=== PATIENT | male | born 1975 | race Caucasian/White ===

== ENCOUNTER 2018-08-21 12:33 | Outpatient (CLI) | payer OTHER ==
[2018-08-21] MEDS ORDERED: IOTHALAMATE MEGLUMINE 50 ML VIAL ONE (12:45)
[2018-08-21] MEDS ORDERED: GADOPENTETATE DIMEGLUMINE 5 ML VIAL IVP ONE ×2 (12:45→13:39)
[2018-08-21] MEDS ORDERED: IOTHALAMATE MEGLUMINE 50 ML VIAL IVP ONE (13:39)
[2018-08-21] MEDS ORDERED: BUFFERED LIDOCAINE 10 ML SYRINGE IU ONE (13:39)
--- NOTE | 2018-08-21 14:46 | XRAY Report ---
Reason: LEFT SHOULDER PAIN Procedure Date: 08/21/2018 Accession Number: [id number] / [id number] Procedure: FL - Arthrogram Needle Placement CPT Code: FULL RESULT: EXAM: LEFT SHOULDER ARTHROGRAPHIC INJECTION WITH FLUOROSCOPIC GUIDANCE EXAM DATE: 08/21/2018 01:36 PM. CLINICAL HISTORY: Left shoulder pain. COMPARISON: None. TECHNIQUE: The risks, benefits, and alternatives of the procedure were discussed with the patient. All questions were answered. Written and verbal consent were obtained. The glenohumeral joint was marked under fluoroscopy and prepped and draped in a sterile manner. Local anesthesia was performed with 1% lidocaine. A 22-gauge needle was then inserted into the glenohumeral joint. 10 mL of a solution containing 25% 1% lidocaine, 25% iodinated contrast, and a 1:200 dilution of gadolinium contrast in sterile saline was then injected. The needle was removed without immediate complication. Other: None. Number of Images: 5. FINDINGS: Bones and joints: No fracture or subluxation. Injection: Fluoroscopic images demonstrate needle placement and contrast in the glenohumeral joint. No contrast extravasation outside of the glenohumeral joint. IMPRESSION: Successful fluoroscopically guided arthrographic injection of the shoulder. [facility]
--- NOTE | 2018-08-22 10:24 | MRI Report ---
Reason: LEFT SHOULDER PAIN Procedure Date: 08/21/2018 Accession Number: [id number] / [id number] Procedure: MRI - Arthrogram Shoulder LT CPT Code: FULL RESULT: EXAM: LEFT SHOULDER MRI ARTHROGRAM WITH CONTRAST EXAM DATE: 08/21/2018 02:16 PM. CLINICAL HISTORY: Left shoulder pain. COMPARISON: None. TECHNIQUE: Multiplanar, multisequence T1-weighted and fluid-sensitive sequences of the shoulder after an arthrographic injection of dilute gadolinium, dictated under a separate exam. Other: None. FINDINGS: Acromioclavicular Region: The acromion is type II. The acromioclavicular joint is unremarkable. The coracoacromial and coracoclavicular ligaments are intact. There is no contrast or fluid in the subacromial/subdeltoid bursa. Glenohumeral Region: No subluxation. No loose bodies. The articular cartilage is unremarkable. The glenohumeral ligaments and joint capsule are unremarkable. Bone Marrow: No fracture, marrow edema or bone lesions. Labrum: The labrum is unremarkable. Biceps Tendon: The long head of the biceps tendon and biceps juliane are intact. Musculature/Rotator Cuff: There is mild supraspinous tendinosis. There is no appreciable tear. Infraspinatus and subscapularis appear normal. No edema or fatty atrophy. Other: The subcutaneous tissues are unremarkable. IMPRESSION: 1. Minimal supraspinatus tendinosis. Otherwise unremarkable. [facility] MUSCULOSKELETAL RADIOLOGY SECTION
== END 2018-08-21 12:34 | disposition home or self-care (01) ==
LOC: DI 12:33
PROVIDERS: ATTEND Student in an Organized Health Care Education/Training Program
DX: M25.512 Pain in left shoulder (principal)
CPT/HCPCS: 23350; 73222; 77002; Q9961

== ENCOUNTER 2019-08-05 15:22 | Emergency (ER) | payer OTHER ==
[2019-08-05 15:54] VITALS: BP 127/99
[2019-08-05 16:28] LABS: BASOPHILS % (AUTO) 0.5 %; EOSINOPHILS # (AUTO) 0.2 10^3/uL (0.0-0.7); EOSINOPHILS % (AUTO) 2.9 %; HGB - HEMOGLOBIN 13.5 g/dL (14.0-18.0); LYMPHOCYTES # (AUTO) 2.6 10^3/uL (1.5-3.5); LYMPHOCYTES % (AUTO) 40.2 %; MEAN CORPUSCULAR HGB CONC 33.1 g/dL (32.0-36.0); MEAN CORPUSCULAR VOLUME 90.7 fL (80.0-94.0); MEAN PLATELET VOLUME 9.3 fL (7.4-11.4); MONOCYTES # (AUTO) 0.5 10^3/uL (0.0-1.0); MONOCYTES % (AUTO) 7.1 %; NEUTROPHILS # (AUTO) 3.2 10^3/uL (1.5-6.6); NEUTROPHILS % (AUTO) 48.8 %; PLT - PLATELET COUNT 161 10^3/uL (130-450); RED CELL DISTRIBUTION WIDTH 12.8 % (12.0-15.0); WHITE BLOOD COUNT 6.5 x10^3/uL (4.8-10.8)
--- NOTE | 2019-08-05 16:38 | XRAY Report ---
Reason: pain Procedure Date: 08/05/2019 Accession Number: [id number] / [id number] Procedure: XR - Chest 1 View X-Ray CPT Code: 15048 FULL RESULT: EXAM: CHEST RADIOGRAPHY EXAM DATE: 08/05/2019 04:11 PM. CLINICAL HISTORY: Pain. COMPARISON: None. TECHNIQUE: 1 view. FINDINGS: Lungs/Pleura: Eventration of the right hemidiaphragm. No focal opacities evident. No pleural effusion. No pneumothorax. Mediastinum: Within exam limitations, the cardiomediastinal contour is normal. Other: None. IMPRESSION: No acute cardiopulmonary findings radiographically. [facility]
[2019-08-05 16:48] LABS: ALBUMIN 4.5 g/dL (3.2-5.5); ALBUMIN/GLOBULIN RATIO 1.5 (1.0-2.2); BILIRUBIN,TOTAL 0.6 mg/dL (0.2-1.0); CALCIUM 9.5 mg/dL (8.5-10.3); CREATININE 1.1 mg/dL (0.6-1.2); TOTAL PROTEIN 7.5 g/dL (6.7-8.2)
== END 2019-08-05 17:07 | disposition left against medical advice (07) ==
LOC: ED 15:22
DX: Z53.21 Procedure and treatment not carried out due to patient leaving prior to being seen by health care provider (principal)
CPT/HCPCS: 36415; 71045; 80053; 83690; 84484; 85025; 93005

== ENCOUNTER 2019-08-05 18:32 | Emergency (ER) | payer OTHER ==
[2019-08-05] MEDS ORDERED: MELOXICAM 7.5 MG TABLET PO STA (20:46)
--- NOTE | 2019-08-05 20:49 | ED Physician Documentation ---
History of Present Illness - Stated complaint Stated Complaint: MUSCLE STRAIN CHEST - Chief complaint Chief Complaint: Cardiac - History obtained from History obtained from: Patient - History of Present Illness Timing: Today Pain level max: 6 Pain level now: 5 - Additonal information Additional information: 44-year-old male states that he feels like there is a muscle strain in the anterior aspect of his right chest. Worse with turning his head or lifting his neck up. Also worse with moving his arm or palpating the chest. Better with rest. Does not recall any injury. No fevers. No redness. No swelling. No difficulty breathing. No shortness of breath. No nausea or vomiting. Review of Systems Constitutional: denies: Fever, Chills Throat: denies: Sore throat Cardiac: denies: Palpitations, Calf pain Respiratory: denies: Dyspnea, Cough, Hemoptysis, Wheezing GI: denies: Abdominal Pain, Nausea, Vomiting : denies: Dysuria Skin: denies: Rash Musculoskeletal: denies: Neck pain, Back pain Neurologic: denies: Focal weakness, Numbness, Headache PD PAST MEDICAL HISTORY - Past Medical History Past Medical History: Yes Cardiovascular: High cholesterol - Present Medications Home Medications: Ambulatory Orders Medication Instructions Recorded Confirmed Atorvastatin [Lipitor] 20 mg ORAL DAILY PM 08/05/19 08/05/19 Cyclobenzaprine [Flexeril] 10 mg PO TID PRN #20 tablet 08/05/19 Loratadine [Claritin] 10 mg PO DAILY 08/05/19 08/05/19 Meloxicam [Mobic] 15 mg PO DAILY PRN #20 tablet 08/05/19 - Allergies Allergies/Adverse Reactions: Allergies Allergy/AdvReac Type Severity Reaction Status Date / Time No Known Drug Allergies Allergy Verified 08/05/19 19:18 - Social History Does the pt smoke?: Yes Smoking Status: Current some day smoker Does the pt drink ETOH?: Yes ETOH Use: Beer Does the pt have substance abuse?: No - Immunizations Immunizations: TDAP >10years/unknown PD ED PE NORMAL - Vitals Vital signs reviewed: Yes - General General: Alert and oriented X 3, No acute distress, Well developed/nourished - HEENT HEENT: PERRL, Ears normal, Moist mucous membranes, Pharynx benign - Neck Neck: Supple, no meningeal sign, No bony TTP, No JVD, No bruit - Cardiac Cardiac: RRR, No murmur, Strong equal pulses - Respiratory Respiratory: No respiratory distress, Clear bilaterally - Abdomen Abdomen: Soft, Non tender, Non distended - Back Back: No spinal TTP - Derm Derm: Warm and dry - Extremities Extremities: Other (Full range of motion of the right shoulder. No tenderness. Neurovascularly intact.) - Neuro Neuro: Alert and oriented X 3 - Psych Psych: Normal mood, Normal affect - Free text exam Free text exam: Tender to palpation across the right anterior chest wall. No crepitus. No erythema. Results - Vitals Vitals: Oxygen O2 Source Room air PD MEDICAL DECISION MAKING - ED course Complexity details: reviewed old records (Reviewed his records from earlier today. No acute lab abnormalities. Normal EKG. Normal chest x-ray.), considered differential, d/w patient ED course: No acute abnormalities on EKG, chest x-ray or lab work earlier today. 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 History and physical are more consistent with a muscle strain. No evidence of necrotizing fasciitis. No evidence of aortic dissection. No evidence of acute coronary syndrome or pulmonary embolus. Patient counseled regarding signs and symptoms for which I believe and urgent re-evaluation would be necessary. Patient with good understanding of and agreement to plan and is comfortable going home at this time This document was made in part using voice recognition software. While efforts are made to proofread this document, sound alike and grammatical errors may occur. Departure - Departure Disposition: 01 Home, Self Care Clinical Impression: Chest wall muscle strain Qualifiers: Encounter type: initial encounter Qualified Code(s): S29.011A - Strain of muscle and tendon of front wall of thorax, initial encounter Condition: Good Instructions: ED Strain Muscle Ext Follow-Up: ANNIKA NUNEZ MD [Primary Care Provider] - Within 1 week Prescriptions: Cyclobenzaprine [Flexeril] 10 mg PO TID PRN #20 tablet PRN Reason: Spasms Meloxicam [Mobic] 15 mg PO DAILY PRN #20 tablet PRN Reason: pain Comments: Return if you worsen. Continue to gently stretch the area. Do not drive or operate Heavy machinery while taking any muscle relaxants. Ice may help as well. Discharge Date/Time: 08/05/19 21:03
[2019-08-05 20:57] VITALS: BP 123/90
== END 2019-08-05 21:03 | disposition home or self-care (01) ==
LOC: ED 18:32
DX: S29.011A Strain of muscle and tendon of front wall of thorax, initial encounter (principal); X58.XXXA Exposure to other specified factors, initial encounter; F17.200 Nicotine dependence, unspecified, uncomplicated
CPT/HCPCS: 99282; 99283; A9270; 36415; 71045; 80053; 83690; 84484; 85025; 93005

== ENCOUNTER 2019-11-01 21:14 | Emergency (ER) | payer OTHER ==
[2019-11-01 21:20] VITALS: BP 126/88
[2019-11-01] MEDS ORDERED: LIDOCAINE JELLY 2% 5 ML TUBE TOP STA (22:14)
--- NOTE | 2019-11-01 22:17 | ED Physician Documentation ---
History of Present Illness - Stated complaint Stated Complaint: LOWER BACK PX - Chief complaint Chief Complaint: General - History obtained from History obtained from: Patient - History of Present Illness Timing: Other (44-year-old gentleman with history of hemorrhoids presents with rectal pain for several days especially while having a bowel movement. No obvious swelling to him. It does not feel as bad as when he has had thrombosed hemorrhoids in the past.) Review of Systems Constitutional: reports: Reviewed and negative Cardiac: reports: Reviewed and negative Respiratory: reports: Reviewed and negative PD PAST MEDICAL HISTORY - Past Medical History Cardiovascular: High cholesterol - Present Medications Home Medications: Ambulatory Orders Medication Instructions Recorded Confirmed Atorvastatin [Lipitor] 20 mg ORAL DAILY PM 08/05/19 08/05/19 Cyclobenzaprine [Flexeril] 10 mg PO TID PRN #20 tablet 08/05/19 Loratadine [Claritin] 10 mg PO DAILY 08/05/19 08/05/19 Meloxicam [Mobic] 15 mg PO DAILY PRN #20 tablet 08/05/19 Nitroglycerin [Rectiv] 1 inch RC BID #60 oint...g. 11/01/19 - Allergies Allergies/Adverse Reactions: Allergies Allergy/AdvReac Type Severity Reaction Status Date / Time No Known Drug Allergies Allergy Verified 11/01/19 21:16 - Social History Does the pt smoke?: Yes Smoking Status: Current some day smoker Does the pt drink ETOH?: Yes Does the pt have substance abuse?: No - Immunizations Immunizations: TDAP >10years/unknown PD ED PE NORMAL - Vitals Vital signs reviewed: Yes - General General: Alert and oriented X 3, No acute distress - Abdomen Abdomen: Non tender - Rectal Rectal: Other (On rectal examination he has some small nonthrombosed hemorrhoids, he has an apparent rectal fissure at 6:00.) - Neuro Neuro: Alert and oriented X 3, Normal speech Results - Vitals Vitals: Vital Signs - 24 hr 11/01/19 21:16 Temperature 36.6 C Heart Rate 82 Respiratory 14 Rate Blood Pressure 126/88 H O2 Saturation 96 Oxygen O2 Source Room air Departure - Departure Disposition: 01 Home, Self Care Clinical Impression: Rectal fissure Condition: Good Record reviewed to determine appropriate education?: Yes Instructions: ED Fissure Anal Ch Prescriptions: Nitroglycerin [Rectiv] 1 inch RC BID #60 oint...g. Comments: Start taking the stool softeners you already have. Drink plenty of fluids. Avoid constipating foods such as cheese and a lot of meat. Follow-up with your doctor in a week. The cream will help start heal the fissure. Return if worse.
== END 2019-11-01 22:35 | disposition home or self-care (01) ==
LOC: ED 21:14
DX: K60.2 Anal fissure, unspecified (principal); K64.9 Unspecified hemorrhoids; F17.200 Nicotine dependence, unspecified, uncomplicated
CPT/HCPCS: 99282; 99283; J3490